=== PATIENT | female | born 1970 | race Caucasian/White ===

== ENCOUNTER 2018-06-03 17:45 | Emergency (ER) | payer SELFPAY ==
[~2018-06-03] VITALS: Ht 167.6 cm; Wt 73.5 kg
--- NOTE | 2018-06-03 18:15 | NUR ---
PATIENT [id number] VIA STRETCHER, REPORTED ALCOHOL INTOXICATION, DRINKING ALCOHOL ALL DAY, ZOFRAN 4MG GIVEN PURSE FRAMER. PATIENT DISORIENTED. SLEEPING. WAKES UP BUT VERBALIZES SHE DOES NOT WANT TO BE BOTHERED. NO ACUTE DISTRESS
--- NOTE | 2018-06-03 18:20 | NUR ---
ASKED PATIENT FOR URINE SAMPLE BUT PATIENT WOULD GO SCREAM, "DONT BOTHER ME" AND WOULD BACK TO SLEEP
[2018-06-03 18:41] LABS: BASOPHILS # (AUTO) 0.2 /CMM (0.0-0.2); BASOPHILS % (AUTO) 4.4 % (0.0-2.0); HEMATOCRIT 40 % (33-45); HEMOGLOBIN 12.9 g/dL (11.5-14.8); LYMPHOCYTES # (AUTO) 2.1 /CMM (0.8-4.8); LYMPHOCYTES % (AUTO) 38.9 % (20.0-44.0); MEAN CORPUSCULAR HGB CONC 33 g/dl (31.0-36.0); MEAN CORPUSCULAR VOLUME 92 fL (82-100); MONOCYTES # (AUTO) 0.5 /CMM (0.1-1.30); MONOCYTES % (AUTO) 9.8 % (2.0-12.0); NEUTROPHILS # (AUTO) 2.5 /CMM (1.8-8.9); NEUTROPHILS % (AUTO) 45.9 % (43.0-81.0); PLATELET COUNT (AUTO) 189 /CMM (150-450); RED BLOOD CELL COUNT(AUTO) 4.31 MIL/uL (4.0-5.2); WHITE BLOOD COUNT (AUTO) 5.5 K/uL (4.3-11.0)
[2018-06-03 19:13] LABS: ALANINE AMINOTRANSFERASE 113 U/L (12-78); ALBUMIN 3.6 g/dL (3.4-5.0); ALCOHOL, BLOOD 402 mg/dL (0-0); ALKALINE PHOSPHATASE 75 U/L (46-116); ASPARTATE AMINOTRANSFERASE 110 U/L (15-37); BILIRUBIN,DIRECT 0.1 mg/dL (0.0-0.2); BILIRUBIN,TOTAL 0.2 mg/dL (0.2-1.0); CALCIUM, SERUM 8.3 mg/dL (8.5-10.1); CARBON DIOXIDE 22 mmol/L (21-32); CREATININE 0.7 mg/dL (0.6-1.3); GLUCOSE 104 mg/dL (74-106); TOTAL PROTEIN, SERUM 7.2 g/dL (6.4-8.2); UREA NITROGEN, BLOOD 12 mg/dL (7-18)
[2018-06-03 19:16] LABS: ACETAMINOPHEN < 5 ug/ml (10-30)
[2018-06-03 19:29] VITALS: BP 98/64
--- NOTE | 2018-06-03 19:50 | NUR ---
PT WAS FOUND IN THE BATHROOM IN ROOM 18. PT IS AMBULATORY WITH A STEADY GAIT. PT WAS DIRECTED BACK TO ER #[id number]. PT'S IV IS ON THE FLOOR. NO BLEEDING NOTED FROM IV SITE. PT ASKED ME TO CALL HER FRIEND BOBBY AT [phone]. I CALLED HER FRIEND BOBBY AND SHE SAID SHE WOULD TRY TO PICK HER UP IN 30 MINS. PT AMBULATED TO THE NURSE'S STATION AND IS TALKING TO DR. Herbert CH.
--- NOTE | 2018-06-03 20:03 | NUR ---
PT AMBULATED OUT OF THE ER WITH A STEADY GAIT. SECURITY ASKED THE PT TO STAY AND WAIT FOR P/U, BUT THE PT REFUSED.
[2018-06-03 21:35] LABS: CHLORIDE 106 mmol/L (98-107); POTASSIUM 4.3 mmol/L (3.5-5.1); SODIUM SERUM 143 mmol/L (136-145)
== END 2018-06-03 20:09 | disposition left against medical advice (07) ==
LOC: ER 17:48
DX: F10.129 Alcohol abuse with intoxication, unspecified (principal); K70.9 Alcoholic liver disease, unspecified; R74.0 Nonspecific elevation of levels of transaminase and lactic acid dehydrogenase [LDH]; Y90.8 Blood alcohol level of 240 mg/100 ml or more
CPT/HCPCS: 36415; 80048; 80076; 80307; 80329; 85025; 99283; G0480